=== PATIENT | female | born 1965 | race Caucasian/White ===

== ENCOUNTER → 2025-02-06 | Outpatient (CLI) | payer BC ==
--- NOTE | 2025-02-06 07:39 | MM ---
Reason for Exam: Screening (asymptomatic). Patient History: Menarche at age 15. First Full-Term at age 21. Hysterectomy at age 32. Postmenopausal. Risk Values: Veronica 5 year model risk: 1.2%. NCI Lifetime model risk: 6.0%. Prior Study Comparison: No prior studies available for comparison. Tissue Density: The breasts are almost entirely fatty. Findings: Analyzed By CAD. Nodular asymmetries in the upper outer quadrants on the right approximately 8.7 cm and 6.5 cm from the nipple. On the left approximately 8.9 cm from the nipple. Overall Assessment: Incomplete: need additional imaging evaluation, BI-RAD 0 Management: Diagnostic Breast Ultrasound of both breasts. Targeted ultrasound upper outer quadrants of bilateral breasts. [facility] will attempt to contact patient to return for supplemental views and ultrasound if indicated. Patient should continue monthly self-breast exams. A clinical breast exam by your physician is recommended on an annual basis. This exam should not preclude additional follow-up of suspicious palpable abnormalities. Note on Veronica scores and lifetime risk: 1. A Veronica score greater than 3% is considered moderate risk. If this is the case, consider specialist referral to assess eligibility for a risk reducing agent. 2. If overall lifetime risk for the development of breast cancer is 20% or higher, the patient may qualify for future screening with alternating mammogram and breast MRI. [facility], , 02/06/2025 7:37 AM. Electronically signed and approved by: Jeremy Lane DO
--- NOTE | 2025-02-07 15:29 | BD ---
EXAMINATION TYPE: Axial Bone Density DATE OF EXAM: 02/06/2025 CLINICAL HISTORY: 59 years old Female. ICD-10 CODE: M89.9 DISORDER OF BONE, UNSPECIFIC , Additional History: Height: 65 Weight: 212 FRAX RISK QUESTIONS: Family History (Parent hip fracture): yes History of Fracture in Adulthood: no Secondary Osteoporosis: no Current Tobacco Use: yes RISK FACTORS HISTORY OF: Surgery to Spine/Hip(right/left)/Wrist (right/left): no MEDICATIONS: Thyroid Medications: no Osteoporosis Medications: no EXAM MEASUREMENTS: Bone mineral densitometry was performed using the [employer] System. Bone mineral density as measured about the Lumbar spine is: ----- L1-L4(G/cm2): 1.002 T Score Values are as follows: ----- L1: -1.9 ----- L2: -1.8 ----- L3: -1.7 ----- L4: -0.8 ----- L1-L4: -1.5 Z Score Values are as follows: ----- L1: -1.7 ----- L2: -1.5 ----- L3: -1.5 ----- L4: -0.6 ----- L1-L4: -1.3 Bone mineral density baseline Bone mineral density about the R hip (g/cm2): 1.008 Bone mineral density about the L hip (g/cm2): 0.966 T Score values are as follows: -----R Neck: -1.5 -----L Neck: -1.5 -----R Total: 0.0 -----L Total: -0.3 Z Score values are as follows: -----R Neck: -0.9 -----L Neck: -0.9 -----R Total: 0.2 -----L Total: -0.1 Bone mineral density baseline FRAX%s: The graph provided illustrates a 7.7% chance for a major osteoporotic fx and a 0.6% chance fo r the hips probability for fx in 10 years time. IMPRESSION: Osteopenia (T Score between -2.5 and -1). There is slightly increased risk of fracture and the patient may be considered for treatment. Re-Screen 2-5 years. NOTE: T-SCORE=SD OF THE YOUNG ADULT MEAN. [facility], , 02/07/2025 3:26 PM
== END | disposition home or self-care (01) ==
LOC: RADMAMWWP 07:02
PROVIDERS: ATTEND Internal Medicine Geriatric Medicine
DX: Z12.31 Encounter for screening mammogram for malignant neoplasm of breast (principal); R92.313 Mammographic fatty tissue density, bilateral breasts; M85.89 Other specified disorders of bone density and structure, multiple sites; Z78.0 Asymptomatic menopausal state
CPT/HCPCS: 77063; 77067; 77080

== ENCOUNTER → 2025-02-14 | Outpatient (CLI) | payer BC ==
--- NOTE | 2025-02-14 09:34 | USB ---
Reason for Exam: Additional evaluation requested from abnormal screening. Patient History: Menarche at age 15. First Full-Term at age 21. Hysterectomy at age 32. Postmenopausal. Risk Values: Veronica 5 year model risk: 1.2%. NCI Lifetime model risk: 6.0%. Technique: Method: Targeted. Prior Study Comparison: 02/06/2025 Bilateral MG 3D screening mammo w/cad, [facility]. Findings: The upper outer quadrant of both breasts, the axilla of both breasts and the retroareolar of both breasts were scanned. Targeted ultrasound bilateral breasts. Right: Scanning along the upper outer quadrant 9:00 to 12:00 including scanning of the subareolar region and axilla. At the 9:00 position, 6 cm from the nipple, there is a 4 x 4 x 3 mm reniform-shaped lesion with some vascularity suggesting a small intramammary lymph node, likely mammographic correlate. At the 10:00 position, 8 cm from the nipple, reniform shaped hypoechoic lesion measuring 5 x 5 x 3 mm with some hilar vascularity, suspect a small intramammary lymph node, likely mammographic correlate. No other solid or cystic lesion or axillary adenopathy. Left: Scanning along the upper outer quadrant 12:00 to 3:00 including scanning of the subareolar region and axilla. At the 2:00 position, 7 cm from the nipple, there is a tiny circumscribed oval hypoechoic area with some associated vascularity and posterior through transmission. Suspect a tiny intramammary lymph node, likely mammographic correlate. No other solid or cystic lesion or axillary adenopathy. Overall Assessment: Probably benign, BI-RAD 3 Management: Diagnostic Mammogram of both breasts in 6 months. A clinical breast exam by your physician is recommended on an annual basis and results should be correlated with mammographic findings. This exam should not preclude additional follow-up of suspicious palpable abnormalities. Results were given to the patient verbally at the time of exam. [facility], , 02/14/2025 8:56 AM. Electronically signed and approved by: Tami Dixon M.D. Radiologist
== END | disposition home or self-care (01) ==
LOC: RADUSWWP 08:12
PROVIDERS: ATTEND Internal Medicine Geriatric Medicine
DX: R92.8 Other abnormal and inconclusive findings on diagnostic imaging of breast (principal); Z78.0 Asymptomatic menopausal state